=== PATIENT | female | born 1960 | race Caucasian/White ===

== ENCOUNTER 2021-06-05 14:43 | Outpatient (REF) | payer MEDICAID, SELFPAY ==
--- NOTE | ~2021-06-05 | XR_ITS ---
EXAMINATION: XR KNEE, RIGHT CLINICAL INFORMATION: Pain right knee COMPARISON: None TECHNIQUE: Four views of the right knee. FINDINGS: There is mild loss of medial and patellofemoral compartment joint space with minimal periarticular spurring. No loose bodies of bony erosive changes seen. There is no abnormal joint effusion. XR/XR knee RT 4V IMPRESSION: Mild degenerative changes medial and patellofemoral compartment. No abnormal joint effusion seen.
== END 2021-06-05 14:44 | disposition home or self-care (01) ==
LOC: HO.XRAY 14:43
PROVIDERS: PCP Nurse Practitioner Family; Visit Provider Nurse Practitioner Family
DX: M25.561 Pain in right knee (principal)
CPT/HCPCS: 73564

== ENCOUNTER 2021-10-01 10:51 | Outpatient (REF) | payer MEDICAID, SELFPAY | END 2021-10-01 10:52 | disposition home or self-care (01) | LOC: HO.LAB 10:51 | PROVIDERS: Visit Provider Internal Medicine | DX: Z20.822 Contact with and (suspected) exposure to COVID-19 (principal) | CPT/HCPCS: C9803; U0003; U0005 ==

== ENCOUNTER 2021-10-14 11:28 | Outpatient (REF) | payer MEDICAID, SELFPAY | END 2021-10-14 11:29 | disposition home or self-care (01) | LOC: HO.LAB 11:28 | PROVIDERS: Visit Provider Internal Medicine | DX: Z13.89 Encounter for screening for other disorder (principal) | CPT/HCPCS: 36415; 87635; C9803 ==

== ENCOUNTER 2021-10-22 09:53 | Outpatient (REF) | payer MEDICAID, SELFPAY ==
[2021-10-22 10:49] LABS: Binax Internal Control QC Valid; Binax Now Covid-19 Ag Negative (Negative)
== END 2021-10-22 09:54 | disposition home or self-care (01) ==
LOC: HO.LAB 09:53
PROVIDERS: Visit Provider Internal Medicine
DX: Z20.822 Contact with and (suspected) exposure to COVID-19 (principal)
CPT/HCPCS: C9803

== ENCOUNTER 2021-10-25 09:40 | Outpatient (REF) | payer MEDICAID, SELFPAY ==
[2021-10-25 10:43] LABS: Binax Internal Control QC Valid; Binax Lot number: 9864; Binax Now Covid-19 Ag Negative (Negative)
== END 2021-10-25 09:41 | disposition home or self-care (01) ==
LOC: HO.LAB 09:40
PROVIDERS: Visit Provider Internal Medicine
DX: Z20.822 Contact with and (suspected) exposure to COVID-19 (principal)
CPT/HCPCS: C9803

== ENCOUNTER 2021-10-30 14:15 | Outpatient (REF) | payer MEDICAID, SELFPAY ==
[2021-10-30 14:40] LABS: COVID-19 Test Negative (Negative); IDNOW Serial# 16C4AD1C
== END 2021-10-30 14:16 | disposition home or self-care (01) ==
LOC: HO.LAB 14:15
PROVIDERS: Visit Provider Internal Medicine
DX: Z20.822 Contact with and (suspected) exposure to COVID-19 (principal)
CPT/HCPCS: 87635; C9803

== ENCOUNTER 2021-11-06 11:45 | Outpatient (REF) | payer MEDICAID, SELFPAY ==
[2021-11-06 12:41] LABS: Binax Internal Control QC Valid; Binax Now Covid-19 Ag Negative (Negative)
== END 2021-11-06 11:46 | disposition home or self-care (01) ==
LOC: HO.LAB 11:45
PROVIDERS: Visit Provider Internal Medicine
DX: Z20.822 Contact with and (suspected) exposure to COVID-19 (principal)
CPT/HCPCS: C9803

== ENCOUNTER 2023-09-15 13:38 | Outpatient (REF) | payer MEDICAID, SELFPAY ==
[2023-09-15 16:37] LABS: TSH reflex Free T4 7.51 uIU/mL (0.32-4.0)
[2023-09-15 17:32] LABS: Free T4 (Free Thyroxine) 0.76 ng/dL (0.71-1.85)
== END 2023-09-15 13:39 | disposition home or self-care (01) ==
LOC: HO.HHCL 13:38
PROVIDERS: Visit Provider Internal Medicine Geriatric Medicine
DX: R42 Dizziness and giddiness (principal); R00.1 Bradycardia, unspecified
CPT/HCPCS: 36415; 84439; 84443

== ENCOUNTER → 2023-11-10 13:45 | Outpatient (BNV) | payer MEDICAID, SELFPAY | PROVIDERS: Visit Provider Radiology Diagnostic Radiology | DX: Z12.31 Encounter for screening mammogram for malignant neoplasm of breast (principal) | CPT/HCPCS: 77063; 77067 ==

== ENCOUNTER 2023-11-10 13:51 | Outpatient (REF) | payer MEDICAID, SELFPAY ==
--- NOTE | ~2023-11-10 | MM_ITS ---
EXAMINATION: MM SCREENING DIGITAL BREAST TOMOSYNTHESIS, BILATERAL CLINICAL INFORMATION: Screening. Asymptomatic. COMPARISON: Mammography: This study is compared with prior exams dating back to 2013. TECHNIQUE: Digital breast tomosynthesis is performed in both the craniocaudal and mediolateral oblique views along with computer-aided detection (CAD). Synthesized 2D images are generated from the tomosynthesis. FINDINGS: There are scattered areas of fibroglandular density (ACR BI-RADS breast composition Category b). There are no significant masses, abnormal calcifications, or other abnormalities. MM/MM tomosynthesis screening BI IMPRESSION: No mammographic evidence of malignancy. ASSESSMENT: BI-RADS BI-RADS 1 - Negative RECOMMENDATION: Routine annual mammography screening. 1 year F/U This examination should not preclude the clinical evaluation of a suspicious palpable abnormality. This patient's information was entered into a reminder system with a target due date for their next mammogram.
== END 2023-11-10 13:52 | disposition home or self-care (01) ==
LOC: HO.MAMMO 13:51
PROVIDERS: Visit Provider Registered Nurse
DX: Z12.31 Encounter for screening mammogram for malignant neoplasm of breast (principal)
CPT/HCPCS: 77063; 77067

== ENCOUNTER 2023-12-15 10:15 | Outpatient (REF) | payer MEDICAID, SELFPAY ==
[2023-12-15 11:49] LABS: MANUAL DIFF FLAG NO
[2023-12-15 12:11] LABS: Basophils Percent Auto 0.6 % (0-2); Eosinophils Absolute Auto 0.1 X10*3/uL (0.0-0.4); Eosinophils Percent Auto 0.8 % (0-4); Hematocrit 38.6 % (37.0-47.0); Hemoglobin 12.8 g/dl (12.0-16.0); Imm Gran Abs Auto 0.02 X10*3/uL (0.00-0.03); Imm Gran Pct Auto 0.3 % (0.0-0.4); Lymphocytes Absolute Auto 2.3 X10*3/uL (1.2-4.9); Mean Corpuscular HGB Conc 33.2 g/dl (31.0-35.0); Mean Corpuscular Hemoglobin 31.4 pg (27.0-33.0); Mean Corpuscular Volume 94.6 fL (80.0-98.0); Mean Platelet Volume 9.5 fL (9.4-12.3); Monocytes Absolute Auto 0.5 X10*3/uL (0.1-1.2); Monocytes Percent Auto 6.9 % (2-11); Neutrophils Absolute Auto 3.8 x10*3/uL (2.0-8.3); Neutrophils Percent Auto 56.4 % (45-73); Platelet Count 362 X10*3/uL (160-400); Red Blood Count 4.08 X10*6/uL (4.20-5.50); Red Cell Distribution Width 13.2 % (11.0-16.0); White Blood Count 6.7 X10*3/uL (4.8-10.8)
[2023-12-15 13:00] LABS: Alanine Aminotransferase 12 U/L (0-31); Alkaline Phosphatase 65 U/L (39-117); Anion Gap 11 (12-20); Aspartate Amino Transferase 13 U/L (5-31); Bilirubin Total 0.3 mg/dL (0.0-1.0); Blood Urea Nitrogen 11 mg/dL (9-16); Calcium 9.4 mg/dL (8.4-10.2); Carbon Dioxide 28 mmol/L (22-29); Chloride 108 mmol/L (96-108); Cholesterol 206 mg/dL (<200); Estimated Glomerular Filt Rate > 60; Glucose Random 79 mg/dL (60-115); HDL Cholesterol 52 mg/dL (>40); LDL Cholesterol Calculated 135 mg/dL (<100); Potassium 3.8 mmol/L (3.3-5.1); Sodium 143 mmol/L (135-145); Total Protein 7.2 g/dL (6.5-8.0); Triglycerides 96 mg/dL (<150)
[2023-12-15 13:18] LABS: Ferritin 228 ng/mL (10-250); TSH reflex Free T4 8.22 uIU/mL (0.32-4.0)
[2023-12-15 14:32] LABS: Free T4 (Free Thyroxine) 0.65 ng/dL (0.71-1.85)
== END 2023-12-15 10:16 | disposition home or self-care (01) ==
LOC: HO.LAB 10:15
PROVIDERS: PCP Registered Nurse; Visit Provider Internal Medicine Cardiovascular Disease
DX: R53.83 Other fatigue (principal); I10 Essential (primary) hypertension; R42 Dizziness and giddiness; R00.1 Bradycardia, unspecified; E03.9 Hypothyroidism, unspecified; Z79.899 Other long term (current) drug therapy
CPT/HCPCS: 36415; 80053; 80061; 82728; 84439; 84443; 85025; 93005; 99202

== ENCOUNTER 2023-12-15 10:16 | Outpatient (AMB) | payer MEDICAID, SELFPAY ==
[2023-12-15 10:30] VITALS: BP 120/60; PULSE 39; BMI 30.1
--- NOTE | 2023-12-15 10:30 | A.OFFVIS_ITS ---
Intake Vital Signs 12/15/23 10:30 12/15/23 11:10 12/15/23 11:10 Height 5 ft 3 in Weight 169 lb 12.095 oz BMI 30.1 BP 120/60 128/6 L 137/68 Blood Pressure Location Lt brachial Lt brachial Lt brachial Position Sitting Supine Standing Pulse 39 L 42 L 41 L Pulse Source Monitor Intake Visit Reasons: [employer]CH[employer]/ Name/Dizziness, bradycardia Intake Note: PT is still feeling dizziness and headaches Private Wealth Advisor Required: Yes Private Wealth Advisor Name: [facility] Allergies No Known Allergies Allergy (Verified 12/15/23 10:37) Medication List - Last Reconciled 12/15/23 by Ciro Dixon MD lisinopril 10 mg PO QAM polyethylene glycol 3350 (Gavilax) 17 grams PO DAILY HPI HPI Comments History of Present Illness Details Thank you for referring Norma in cardiology consultation today for lightheadedness. She has a 63-year-old female with prior history of hypertension although she has not sure as to how long, history obtained with help of invoicing specialist. Patient says that she went to you in September when she was noted to have elevated blood pressure although she has not clear but she says her lisinopril was increased at that time to 10 mg. She has not sure as to why. Since then she has been getting more frequent episodes of lightheadedness. However she says she was getting lightheaded episodes even before. She says she can get lightheaded episodes when she is sitting down but mostly happens when she is up and about. She denies any orthostatic lightheadedness. She was at that time noted to have slow heart rate was advised a cardiology consultation. She comes today for cardiology consultation. In September she had a TSH which was elevated in the 7.5 range [facility] Medical History (Updated 12/15/23 @ 10:57 by Ciro Dixon MD) HTN (hypertension) Family History (Updated 12/15/23 @ 10:39 by Fernanda Soto) Mother No problems noted. Review of Systems Const Denies weakness Eyes Denies loss of vision ENT Denies dizziness Card Details: Heaches & Dizziness Denies chest pain, Denies chest pain with activity, Denies syncope, Denies rapid heart rate, Denies pedal edema, Denies edema, Denies leg edema, Denies lightheadedness, Denies palpitations, Denies dyspnea, Denies dyspnea on exertion and Denies orthopnea Resp Denies cough, Denies dyspnea, Denies dyspnea on exertion and Denies wheezing GI Denies hematochezia and Denies change in stool character Denies urinary frequency and Denies dysuria Musc Denies abnormal gait, Denies muscle cramps, Denies muscle weakness, Denies numbness, Denies radiating pain into limb and Denies tingling Skin/Breast Denies nail changes and Denies rash Neuro Denies abnormal gait, Denies dizziness, Denies syncope, Denies loss of vision, Denies memory loss, Denies numbness, Denies tingling and Denies weakness Psych Denies depression and Denies memory loss Endo Denies palpitations Maverick/Lymph Reports easy bruising and Reports other (anemia) Aller/Immun Denies wheezing Physical Exam Vital Signs: Last Vital Signs Pulse 41 L 12/15/23 11:10 BP 137/68 12/15/23 11:10 BMI result Body Mass Index 30.1 Office Procedures EKG Details: EKG shows marked sinus bradycardia, with junctional ST depression 25118-Iamzlacpuupghzavn, Complete Assessment & Plan Assessment & Plan (1) Lightheadedness: Code(s): R42 - Dizziness and giddiness Plan: Patient's lightheadedness is concerning. However symptoms have been exacerbated since increasing lisinopril therapy, could be due to poor cerebral perfusion from low blood pressure low heart rate. See below for sinus bradycardia. At this time time I suggested to increase her fluid intake and reduce lisinopril to 5 mg daily. Advised to monitor blood pressure at home and maintain a log. Low- salt diet was discussed. If she gets progressive symptoms or has episodes of syncope she is advised to come to the emergency room. Her suggest an echocardiogram as well as Holter monitor to further assess for any significant sinoatrial marie disease that may necessitate a pacemaker. Will follow up in the clinic after above testing. (2) Sinus bradycardia: Code(s): R00.1 - Bradycardia, unspecified Plan: Significant sinus bradycardia without any rate lowering medications. Avoid rate lowering medication the future. However she has hypothyroidism by blood work and will repeat TSH. Have taken the liberty to provide her with thyroid replacement therapy. Follow-up Holter monitor in 4 weeks time as well as TSH. She is also recommended to undergo treadmill stress test about 4 weeks to assess for chronotropic competence. If despite adequate correction of her thyroid condition she has significant symptomatic sinus bradycardia require pacemaker therapy. This was discussed with her. She understands and agrees. Follow up in the clinic in 6 weeks time, sooner p.r.n.. Thank you for allowing me to partake in the care Orders: Orders TSH reflex Free T4 12/15/23 E03.9 - Hypothyroidism, unspecified CA echo transthoracic complete 12/15/23 R42 - Dizziness and giddiness ECG holter monitor 48 hour 12/15/23 R00.1 - Bradycardia, unspecified Basic Metabolic Panel 12/15/23 E03.9 - Hypothyroidism, unspecified Complete Blood Count no Diff 12/15/23 E03.9 - Hypothyroidism, unspecified CA stress test 4 Weeks R00.1 - Bradycardia, unspecified Medications: New levothyroxine 25 mcg PO DAILY 30 caps 2RF R42 - Dizziness and giddiness lisinopril 5 mg PO QAM R42 - Dizziness and giddiness Coding Level of Care Code New Pt Level 4 (48541) Diagnoses Lightheadedness R42 Sinus bradycardia R00.1 CPT Codes EKG - CPT: 79363-[id number], Complete ([id number])
[2023-12-15 11:10] VITALS: BP 128/6; BP 137/68; PULSE 41; PULSE 42
== END 2023-12-15 11:19 | disposition home or self-care (01) ==
PROVIDERS: PCP Registered Nurse; Visit Provider Internal Medicine Cardiovascular Disease
DX: R42 Dizziness and giddiness (principal); R00.1 Bradycardia, unspecified
CPT/HCPCS: 93010; 99204

== ENCOUNTER → 2024-11-15 14:00 | Outpatient (BNV) | payer MEDICAID, SELFPAY | PROVIDERS: PCP Registered Nurse; Visit Provider Internal Medicine | DX: Z12.31 Encounter for screening mammogram for malignant neoplasm of breast (principal) | CPT/HCPCS: 77063; 77067 ==

== ENCOUNTER 2024-11-29 15:24 | Outpatient (REF) | payer MEDICAID, SELFPAY ==
[2024-11-29 16:13] LABS: MANUAL DIFF FLAG NO
--- OUTSIDE RECORDS SUMMARY | 2024-11-29 16:17 | XMS_ITS | Encounter Summary ---
Author Organization [employer] Address [address] [facility] [address] [place] [address] Care Team Providers Care Printing Screen Assembler Name Role Phone Kristan Mancilla TANDEM OPERATOR Primary Care Provider [phone] Encounter Details Date Type Department Care Team (Latest Contact Info) Description 11/29/2024 2:40 PM EST Office Visit [facility] [address] [place] [address] Acquired hypothyroidism (Primary Dx); Other fatigue; Acute maxillary sinusitis, recurrence not specified; Cough, unspecified type; Insomnia, unspecified type Social History Tobacco Use Types Packs/Day Years Used Date Smoking Tobacco: Former Cigarettes Smokeless Tobacco: Never Depression Answer Date Recorded Patient Health Questionnaire-9 Score 12 11/06/2023 Patient Health Questionnaire-9 Score 12 11/06/2023 Last PHQ-9: Questionnaire Data Not on file 0 11/06/2023 Housing Stability Answer Date Recorded What is your housing situation today? I have marcio rodriguez 11/06/[address] you li ve. Do you have problems with any of the following? None of the above 11/06/2023 Food Insecurity Answer Date Recorded Within the past 12 months, y ou worried that your food would run out before you got money to buy more: Never True 11/06/2023 Within the past 12 months,th e food you bought just didn't last and you didn't have enough money to get more: Never True Transportation Answer Date Recorded In the past 12 months, has l ack of transportation kept you from medical appts, meetings, work or from getting things needed for daily living? No 11/06/2023 Utilities Answer Date Recorded In the past 12 months, has t he electric, gas, oil or water company threatened to shut off services in your home? No 11/06/2023 Depression Answer Date Recorded Patient Health Questionnaire-2 Score 3 11/06/2023 Comments Unknown Sex and Gender Information Value Date Recorded Sex Assigned at Female 08/11/2022 10:15 AM EDT Legal Sex Female 10:15 AM EDT Gender Identity Female 08/11/2022 10:15 AM EDT Sexual Orientation Don't know 08/11/2022 10 :15 AM EDT documented as of this encounter Last Filed Vital Signs Vital Sign Reading Time Taken Comments Blood Pressure 111/75 11/29/2024 2:34 PM EST Pulse 74 11/29/2024 2:34 PM EST Temperature 36.5 ??C (97.7 ??F) 11/29/2024 2:34 PM ES T Respiratory Rate 16 11/29/2024 2:34 PM EST Oxygen Saturation - - Inhaled Oxygen Concentration - - Weight 73.9 kg (163 lb) 11/29/2024 2:34 PM EST Height 157.5 cm (5' 2 ) 11/29/2024 2:34 PM EST Body Mass Index 29.81 11/29/2024 2:34 PM EST documented in this encounter Plan of Treatment Upcoming Encounters Date Type Department Care Team (Late st Contact Info) Description 12/30/2024 11:15 AM EDT Office Visit [facility] [address] [place], [place] [id number] [facility] [address] [place] [address] Scheduled Orders Name Type Priority Associated Diagnoses Orde r Schedule CBC auto differential Lab Routine Acquired hypothyroidism Other fatigue Expected: 11/29/2024 (Approximate), Expires: 11/29/2025 Comprehensive Metabolic Panel Lab Routine Acquired hypothyroidism Other fatigue Expected: 11/29/2024 (Approximate), Expires: 11/29/2025 Hemoglobin A1c Lab Routine Acquired hypothyroidism Other fatigue Expected: 11/29/2024 (Approximate), Expires: 11/29/2025 HIV-1/2 Antigen and Antibodies, Fourth Generation, with Reflexes Lab Routine Acquired hypothyroidism Other fatigue Expected: 11/29/2024 (Approximate), Expires: 11/29/2025 Hepatitis C Antibody with Reflex to HCV, RNA, Quantitative, Real-Time PCR Lab Routine Acquired hypothyroidism Other fatigue Expected: 11/29/2024, Expires: 11/29/2025 Lipid Panel, Standard Lab Routine Acquired hypothyroidism Other fatigue Expected: 11/29/2024 (Approximate), Expires: 11/29/2025 Vitamin D, 25-Hydroxy, Total, Immunoassay Lab Routine Acquired hypothyroidism Other fatigue Expected: 11/29/2024 (Approximate), Expires: 11/29/2025 TSH with Reflex to Free T4 Lab Routine Acquired hypothyroidism Other fatigue Expected: 11/29/2024 (Approximate), Expires: 11/29/2025 documented as of this encounter Visit Diagnoses Diagnosis Acquired hypothyroidism- Primary Unspecified hypothyroidism Other fatigue Acute maxillary sinusitis, recurrence not specified Cough, unspecified type Insomnia, unspecified type documented in this encounter Additional Health Concerns Assessment Noted Time PHQ-9 Depression Total Score: 12 024 3:40 PM EST documented as of this encounter Care Teams Printing Screen Assembler Relationship Specialty Start Date End Date Kristan Mancilla FNP [address] [place] [id number] PCP - General Family Medicine 04/15/22 documented as of this encounter
--- OUTSIDE RECORDS SUMMARY | 2024-11-29 16:17 | XMS_ITS | Encounter Summary ---
Author Organization [employer] [facility] Address [address] [facility] [address] [place] [address] Care Team Providers Care Literacy Specialist Name Role Phone [place] [facility] Primary Care Provider [phone] Encounter Details Date Type Department Care Team (Late Contact Info) Description 04/23/[address] [address] [facility] [address] [place] [address] Social History Tobacco Use Types Packs/Day Years Used Date Smoking Tobacco: Never Assessed Comments Unknown Sex and Gender Information Value Date Recorded Sex Assigned at Female 08/11/2022 10:15 AM EDT Legal Sex Female 10:15 AM EDT Gender Identity Female 08/11/2022 10:15 AM EDT Sexual Orientation Don't know 08/11/2022 10 :15 AM EDT documented as of this encounter Plan of Treatment Upcoming Encounters Date Type Department Care Team (Late st Contact Info) Description 12/30/2024 11:15 AM EDT Office Visit [facility] [address] [place] [address] [place] [facility] [address] [place] [address] documented as of this encounter Visit Diagnoses Not on filedocumented in this encounter Care Teams Literacy Specialist Relationship Specialty Start Date End Date Kristan Mancilla [facility] [address] [place] [id number] PCP - General Family Medicine 04/15/22 documented as of this encounter
--- OUTSIDE RECORDS SUMMARY | 2024-11-29 16:17 | XMS_ITS | Encounter Summary ---
Author Organization [employer] Address [address] [facility] [address] [place] [address] Care Team Providers Care Labor Gang Supervisor Name Role Phone [place] [facility] Primary Care Provider [phone] Reason for Visit * Reason Onset Date Comments Walk In Triage 11/29/2024 Encounter Details Date Type Department Care Team (Late st Contact Info) Description 11/29/2024 Telephone [facility] [address] [place] [address] [facility] [address] [place] [address] Walk In Triage Social History Tobacco Use Types Packs/Day Years [...] t he electric, gas, oil or water [employer] threatened to shut off services in your [...] AM EDT documented as of this encounter Miscellaneous Notes * Telephone Encounter - Mable Dutta RN - 11/29/2024 11:18 AM EST Assessment: Patient presents to red team with c/o concerns regarding BP (at times elevated and at times low). Patient did not have BP readings with her, reports she did not check BP today. Patient also has c/o dizziness, sweating, dry cough, fatigue and tachycardia. Patient reports she woke up during the nightsweating and with a headache. Patient also reports she has been having memory difficulties (short te rm memory). Patient currently is taking lisinopril 10mg daily, reports compliance. Patient reports feeling anxious (has not seen a therapist in the past) and also reports episodes of depression. Patient reports at times she begins to cry without having a reason. Patient reports feeing safe at home. Symptoms have been present for 1 week. Symptoms are intermittent. Symptoms worsen when laying down d/t cough worsening. Symptoms are relieved by relaxation techniques (listening to music, deep breaths). Patient is taking lisinopril 10mg, levothyroxine 25mcg and albuterol inhaler q4 hours daily. Recent ED visit or hospitalization: No. VS as follows (if applicable): Temp 97.5F by forehead thermometer HR 60 regular rate and rhythm Resp 20 none BP 123/78 left Arm; Device: Automatic Cuff Size: regular O2 sat 97 % on room air Pain level: 7, Location: Headache Lung sounds (if applicable) Congested, Location: middle left No Known Allergies Current Outpatient Medications Medication Sig Dispense Refill albuterol 108 (90 Base) MCG/ACT inhaler Inhale 2 puffs every 4 (four) hours if needed for wheezing or shortness of breath. 18 g 1 azithromycin (Zithromax Z-Silverio) 250 MG tablet Take 2 tablets once on day 1, then 1 tablet 1x/day for4 days. 6 tablet 0 Blood Pressure kit Use as directed 1 kit 0 Diclofenac Sodium 1 % gel APPLY TO THE AFFECTED AREA(S) 2 GRAMS TOPICALLY FOUR TIMES DAILY FOR HANDARTHRITIS levothyroxine (Synthroid, Levoxyl) 25 MCG tablet Take 1 tablet (25 mcg) by mouth Once per day. 30 tablet 5 lisinopril (Prinivil) 10 MG tablet Take 1 tablet (10 mg) by mouth Once per day. 30 tablet 5 meloxicam (Mobic) 7.5 MG tablet TAKE 1 TABLET BY MOUTH ONCE DAILY NEEDED FOR JOINT PAIN polyethylene glycol, PEG, 3350 (GaviLAX) 17 GM/SCOOP powder TAKE 17 GM MIXED IN 8 OUNCES OF WATER ONCE DAILY 510 g 2 Spacer/Aero-Holding Chambers (OptiChamber Beth) misc 1 each every 4 (four) hours if needed (asthma). 1 each 0 No current facility-administered medications for this visit. Patient Active Problem List Diagnosis Date Noted Essential hypertension 10/07/2022 Mixed hyperlipidemia 10/07/2022 Vitamin D deficiency 10/07/2022 Obesity 08/11/2016 Plan of care: RN spoke to Dr. Crouch in regards to patient and her s/s. Dr. Crouch agreed to evaluate patient after TV appointment. While patient awaited for provider, patient was on a phone call, no SOB noted during call. Dr. Crouch has cleared patient to await for 2:40pm appointment in [facility]. Patient to be seen in [facility] 11/29/24 at 2:40pm. Advised to return at 2:10pm for Provider evaluation Mable Dutta RN documented in this encounter Plan of Treatment Upcoming Encounters Date Type Department Care Team (Late st Contact Info) Description 12/30/2024 11:15 AM EDT Office Visit [facility] [address] [place] [address] [facility] [address] [place] [address] documented as of this encounter Visit Diagnoses Not on filedocumented in this encounter Additional Health Concerns Assessment Noted Time PHQ-9 Depression Total Score: 12 024 3:40 PM EST documented as of this encounter Care Teams Labor Gang Supervisor Relationship Specialty Start Date End Date Kristan Mancilla FNP [address] [place] [address] PCP - General Family Medicine 04/15/22 documented as of this encounter
--- OUTSIDE RECORDS SUMMARY | 2024-11-29 16:17 | XMS_ITS | Encounter Summary ---
Author Organization [facility] Address [address] [facility] 7t [place] [address] Care Team Providers Care Egg Crater Name Role Phone Kristan Mancilla CAN SOLDERER Primary Care Provider [phone] Reason for Referral * Consultation (Routine) - Authorized Specialty Diagnoses / Procedures Referred By Bethany turner Referred To Contact Cardiology Diagnoses Bradycardia Modesto Galeana MD [address] [place], [place] Phone: tel: fax: Liban Busby MD [address] [place], [place] Phone: tel: fax: Referral ID Status Reason Start Date Expiration Date Visits Requested Visits Authorized [id number] Authorized Specialty Services Required 11/16/2024 11/16/2025 1 1 * Consultation (Routine) - Closed Specialty Diagnoses / Procedures Referred By Bethany turner Referred To Contact Obstetrics and Gynecology Diagnoses Screening for cervical cancer Modesto Galeana MD [address] [place] [address] Phone: tel: fax: [facility] [address] 5[address] (Main Hospital Entrance) [place], [place] Phone: tel: fax: Referral ID Status Reason Start Date Expiration Date V isits Requested Visits Authorized [id number] Closed Specialty Services Required 11/16/2024 11/16/2025 9 9 Reason for Visit * Reason Comments Cough Encounter Details Date Type Department Care Team ([facility] Contact Info) Description 11/16/2024 4:00 PM EST Office Visit [facility] [address] [facility] [place] [address] Modesto Galeana MD [address] [facility] [place] [address] Acute cough (Primary Dx); Essential hypertension; Bradycardia; Screening for cervical cancer; Hypothyroidism, unspecified type; Constipation, unspecified constipation type Social History Tobacco Use Types Packs/Day Years Used Date Smoking Tobacco: Former Cigarettes Smokeless Tobacco: Never Tobacco Cessation:Counseling Given: Not Answered Depression Answer Date Recorded Patient Health Questionnaire-9 Score 12 11/06/2023 Patient Health Questionnaire-9 Score 12 11/06/2023 Last PHQ-9: Questionnaire Data Not on file 0 11/06/2023 Housing Stability Answer Date Recorded What is your housing situation today? I have marciogerald rodriguez 11/06/[address] you [...] Sign Reading Time Taken Comments Blood Pressure 149/85 11/16/2024 4:05 PM EST Pulse 52 11/16/2024 4:05 PM EST Temperature 37.1 ??C (98.8 ??F) 11/16/2024 4:05 PM ES T Respiratory Rate 18 11/16/2024 4:05 PM EST Oxygen Saturation 97% 11/16/2024 4:05 PM EST Inhaled Oxygen Concentration - - Weight 72.8 kg (160 lb 9.6 oz) 11/16/2024 4:05 P M EST Height - - Body Mass Index 29.37 11/06/2023 3:39 PM EST documented in this encounter Progress Notes * Modesto Galeana MD - 11/16/2024 4:00 PM EST Subjective Patient ID: Norma Simmons is a 64 y.o. female. Test Deskman: daughter INGA Green has 2 week h/o, dry/productive cough, occasional wheezing and SOB. No fever, n/v/d. Taking p.o. well. Tried DayQuil, NyQuil, Mucinex. No showed for last 2 PCP visits. Ran out of Synthroid 07/2025, prescribed by Dr. Dixon, who she states won't see her anymore becauseof missed appointments. Was seeing him for bradycardia. Also states that she needs f/u jose't with [facility]; last jose't was > 1 year ago. Also requesting refill of amlodipine and MiraLax. Still taking amlodipine 10 mg. Lives with , daughter, grandchildren. 1 grandchild tested + for RSV. Not employed. Former smoker, quit 12 years ago. Smokes weed. Patient Active Problem List Diagnosis Essential hypertension Mixed hyperlipidemia Obesity Vitamin D deficiency The following portions of the chart were reviewed this encounter and updated as appropriate: Tobacco Allergies Meds Problems Med Hx Surg Hx Fam Hx Review of Systems Constitutional: Negative for fever. Respiratory: Positive for cough, shortness of breath and wheezing. Cardiovascular: Negative for chest pain. Gastrointestinal: Negative for abdominal pain. Skin: Negative for rash. Neurological: Negative for headaches. Objective Physical Exam Constitutional: Appearance: Normal appearance. HENT: Right Ear: Tympanic membrane, ear canal and external ear normal. Left Ear: Tympanic membrane, ear canal and external ear normal. Nose: Nose normal. Mouth/Throat: Mouth: Mucous membranes are moist. Pharynx: Oropharynx is clear. Eyes: Conjunctiva/sclera: Conjunctivae normal. Pupils: Pupils are equal, round, and reactive to light. Cardiovascular: Rate and Rhythm: Normal rate and regular rhythm. Heart sounds: No murmur heard. Pulmonary: Effort: Pulmonary effort is normal. Breath sounds: Rales (left midlung field) present. Musculoskeletal: General: Normal range of motion. Cervical back: No tenderness. Skin: Findings: No rash. Neurological: Mental Status: She is alert. Gait: Gait is intact. Psychiatric: Mood and Affect: Mood normal. Behavior: Behavior normal. Procedures Assessment/Plan Diagnoses and all orders for this visit: Acute cough Negative rapid Covid and Influenza tests. Rapid Strep test negative. Presumptive pneumonia based on exam, 2 weeks of sx. Prescribed alubterol HFA with spacer, prednisone, Zithromax. rtc if not improving. Essential hypertension Has home BP monitor. Reviewed BP parameters, given written BP log that includes BP parameters, to keep daily. We scheduled PCP jose't; advised to bring BP log to visit. - POCT Rapid Covid-19 BinaxNOW - POCT Rapid Influenza A AC ID NOW - POCT Rapid Influenza B AC ID NOW - POCT Rapid Strep A AC ID NOW - lisinopril (Prinivil) 10 MG tablet; Take 1 tablet (10 mg) by mouth Once per day. Hypothyroidism, unspecified type Refilled levothyroxine today. PCP jose't scheduled. Bradycardia New cardiology referral sent. Screening for cervical cancer Sent new referral to [facility]. Constipation, unspecified constipation type Refilled MiraLax - polyethylene glycol, PEG, 3350 (GaviLAX) 17 GM/SCOOP powder; TAKE 17 GM MIXED IN 8 OUNCES OF WATER ONCE DAILY Other orders - levothyroxine (Synthroid, Levoxyl) 25 MCG tablet; Take 1 tablet (25 mcg) by mouth Once per day. - albuterol 108 (90 Base) MCG/ACT inhaler; Inhale 2 puffs every 4 (four) hours if needed for wheezing or shortness of breath. - azithromycin (Zithromax Z-Silverio) 250 MG tablet; Take 2 tablets once on day 1, then 1 tablet 1x/day for 4 days. - Spacer/Aero-Holding Chambers (OptiChamber Beth) [facility]; 1 each every 4 (four) hours if needed (asthma). - predniSONE (Deltasone) 20 MG tablet; Take 2 tablets (40 mg) by mouth Once per day for 5 days. documented in this encounter Plan of Treatment Upcoming Encounters Date Type Department Care Team (Late st Contact Info) Description 12/30/2024 11:15 AM EDT Office Visit [facility] [address] [place], [place] [phone] [facility] [address] [place] [address] Scheduled Referrals Name Type Priority Associated Diagnoses Order Schedule Referral to Obstetrics / Gynecology Outpatient Referral Routine Screening for cervical cancer Expected: 11/16/2024 (Approximate), Expires: 11/16/2025 Referral to Cardiology Outpatient Referral Routine Bradycardia Expected: 11/16/2024 (Approximate), Expires: 11/16/2025 documented as of this encounter Procedures Procedure Name Priority Date/Time Associated Diagnosis Comments POCT INFLUENZA B (ID NOW RAPID MOLECULAR) Routine 11/16/2024 4:30 PM EST Essential hypertension POC AC ID NOW STREP A Routine 11/16/2024 4:30 PM EST Essential hypertension POCT INFLUENZA A (ID NOW RAPID MOLECULAR) Routine 11/16/2024 4:29 PM EST Essential hypertension POCT RAPID COVID ANTIGEN Routine 11/16/2024 4:29 PM EST Essential hypertension documented in this encounter Results * POCT Rapid Strep A AC ID NOW (11/16/2024 4:30 PM EST) [facility] Rapid Strep A Screen Negative Negative, None Detected QC Media Lot # [id number] Lot# Expiration Date [id number] Swab 11/16/2024 4:30 PM EST Modesto Galeana MD POINT OF CARE TEST ENTER/EDIT OR DERABLES Final Result * POCT Rapid Influenza B AC ID NOW (11/16/2024 4:30 PM EST) Influenza B Negative Negative, Indeterminate [facility] QC Media Lot # [id number] [facility] Lot# Expiration Date [facility] Swab 11/16/2024 4:30 PM EST us Modesto Galeana MD POINT OF CARE TEST ENTER/EDIT OR DERABLES Final Result Performing Organization Address [facility]/ZIP Co de Phone Number [facility] [address] [place] [phone] * POCT Rapid Influenza A AC ID NOW (11/16/2024 4:29 PM EST) Influenza A Negative Negative, Indeterminate [facility] QC Media Lot # [id number] [facility] Lot# Expiration Date [facility] Swab 11/16/2024 4:29 PM EST us Modesto Galeana MD POINT OF CARE TEST ENTER/EDIT OR DERABLES Final Result Performing Organization Address [facility] Co de Phone Number [facility] [address] [place] [phone] * POCT Rapid Covid-19 BinaxNOW (11/16/2024 4:29 PM EST) Rapid COVID Ag Negative QC Media Lot # [id number] Lot# Expiration Date 026 Swab 11/16/2024 4:29 PM EST Result Mica Galeana MD POINT OF CARE TEST ENTER/EDIT OR DERABLES Final Result documented in this encounter Visit Diagnoses Diagnosis Acute cough- Primary Essential hypertension Unspecified essential hypertension Bradycardia Other specified cardiac dysrhythmias Screening for cervical cancer Screening for malignant neoplasm of the cervix Hypothyroidism, unspecified type Constipation, unspecified constipation type documented in this encounter Additional Health Concerns Assessment Noted Time PHQ-9 Depression Total Score: 12 024 3:40 PM EST documented as of this encounter Care Teams Egg Crater Relationship Specialty Start Date End Date Kristan Mancilla FNP [address] [place] [phone] PCP - General Family Medicine 04/15/22 documented as of this encounter
--- OUTSIDE RECORDS SUMMARY | 2024-11-29 16:17 | XMS_ITS | Encounter Summary ---
Author Organization [employer] Address [address] [facility] [address]t [place] [address] Care Team Providers Care Coin Box Collector Name Role Phone Colver [facility] Primary Care Provider [phone] Reason for Visit * Reason Onset Date Comments Appointment Request 11/23/2024 Encounter Details Date Type Department Care Team (Late st Contact Info) Description 11/23/2024 Telephone [facility] [address] [place] [address] Colver [facility] [address] [place] [address] Appointment Request Social History Tobacco Use Types Packs/Day Years [...] Telephone Encounter - Mable Dutta RN - 11/23/2024 2:45 PM EST TC placed to patient [phone] in regards to below message we're sorry your call did not go thru . RN unable to leave VM. TC placed to [phone] however number is OOS. TC placed to spouse [phone] however no answer, RN left VM requesting CB to red team nurses. Patient to f/u PRN. * Telephone Encounter - Casimiro Puente - 11/23/2024 11:44 AM EST Tc from pt requesting a callback as she will like to make appointment for a pap- smear as she had came out with pre-cancer and will like to take care off before something worsen out. documented in this encounter Plan of Treatment Upcoming Encounters Date Type Department Care Team (Late st Contact Info) Description 12/30/2024 11:15 AM EDT Office Visit [facility] [address] [place] [address] Kristan Mancilla FNP [address] [place] [address] documented as of this encounter Visit Diagnoses Not on filedocumented in this encounter Additional Health Concerns Assessment Noted Time PHQ-9 Depression Total Score: 12 024 3:40 PM EST documented as of this encounter Care Teams Coin Box Collector Relationship Specialty Start Date End Date Kristan Mancilla FNP [address] [place] [address] PCP - General Family Medicine 04/15/22 documented as of this encounter
--- OUTSIDE RECORDS SUMMARY | 2024-11-29 16:17 | XMS_ITS | Encounter Summary ---
Author Organization [employer] Address [address] [facility] [address]t [place] [address] Care Team Providers Care Sales Clerk Supervisor Name Role Phone Kristan Mancilla Primary Care Provider [phone] Encounter Details Date Type Department Care Team (Late st Contact Info) Description 09/18/2023 Orders Only [facility] [address] [place] [address] [phone] Kristan Mancilla FNP [address] [place], [place] [phone] Social History Tobacco Use Types Packs/Day Years Used Date Smoking Tobacco: Never Smokeless Tobacco: Never Comments Unknown Sex and Gender Information Value Date Recorded Sex Assigned at Female 08/11/2022 10:15 AM EDT Legal Sex Female 10:15 AM EDT Gender Identity Female 08/11/2022 10:15 AM EDT Sexual Orientation Don't know 08/11/2022 10 :15 AM EDT documented as of this encounter Progress Notes * BIENVENIDO Morrow - 09/18/2023 4:17 PM EST error documented in this encounter Plan of Treatment Upcoming Encounters Date Type Department Care Team (Late Contact Info) Description 12/30/2024 11:15 AM EDT Office Visit [facility] [address] [place] [phone] Kristan Mancilla FNP [address] [place] [address] documented as of this encounter Visit Diagnoses Not on filedocumented in this encounter Care Teams Sales Clerk Supervisor Relationship Specialty Start Date End Date Kristan Mancilla, BIENVENIDO [address] [place] [address] PCP - General Family Medicine 04/15/22 documented as of this encounter
--- OUTSIDE RECORDS SUMMARY | 2024-11-29 16:17 | XMS_ITS | Clinical Summary ---
Author Organization [employer] Address [address] [facility] 7t [place] [address] Care Team Providers Care Intravenous Therapy Nurse Name Role Phone Kristan Mancilla HAND MICA PLATE LAYER Primary Care Provider [phone] Allergies No known active allergies Medications Diclofenac Sodium 1 % gel APPLY TO THE AFFECTED AREA(S) 2 GRAMS TOPICALLY FOUR TIMES DAILY FOR HAND ARTHRITIS 03/20/20 22 Active meloxicam (Mobic) 7.5 MG tablet TAKE 1 TABLET BY MOUTH ONCE DAILY NEEDED FOR JOINT PAIN 01/16/20 22 Active Blood Pressure kitIndications: Essential hypertension Use as directed 1 kit 11/06/19 24 Active levothyroxine (Synthroid, Levoxyl) 25 MCG tablet Take 1 tablet (25 mcg) by mouth Once per day. 30 tablet 5 11/16/19 25 026 Active azithromycin (Zithromax Z-Silverio) 250 MG tablet Take 2 tablets once on day 1, then 1 tablet 1x/day for 4 days. 6 tablet 11/16/19 25 Active Spacer/Aero-Hol ding Chambers (OptiChamber Beth) misc 1 each every 4 (four) hours if needed (asthma). 1 each 11/16/19 25 Active lisinopril (Prinivil) 10 MG tabletIndicatio ns:Essential hypertension Take 1 tablet (10 mg) by mouth Once per day. 30 tablet 5 11/16/19 25 026 Active polyethylene glycol, PEG, 3350 (GaviLAX) 17 GM/SCOOP powderIndicatio ns:Constipation , unspecified constipation type TAKE 17 GM MIXED IN 8 OUNCES OF WATER ONCE DAILY 510 g 2 11/16/19 25 Active amoxicillin-cla vulanate (Augmentin) 875-125 MG tabletIndicatio ns:Acute maxillary sinusitis, recurrence not specified Take 1 tablet by mouth 2 times daily for 7 days. 14 tablet 11/29/19 25 025 Active fluticasone (Flonase) 50 MCG/ACT nasal sprayIndication s:Acute maxillary sinusitis, recurrence not specified Administer 1-2 sprays into each nostril 2 times daily. Shake gently. Before first use, prime pump. After use, clean tip and replace cap. 16 g 2 11/29/19 25 026 Active albuterol 108 (90 Base) MCG/ACT inhalerIndicati ons:Cough, unspecified type Inhale 2 puffs every 4 (four) hours if needed for wheezing or shortness of breath. 18 g 1 11/29/19 25 026 Active acetaminophen (Tylenol Extra Strength) 500 MG tabletIndicatio ns:Acute maxillary sinusitis, recurrence not specified Take 2 tablets (1,000 mg) by mouth every 8 (eight) hours if needed for mild pain for up to 10 days. 30 tablet 11/29/19 25 025 Active melatonin 5 MG tabletIndicatio ns:Insomnia, unspecified type Take 1 tablet (5 mg) by mouth at bedtime. 30 tablet 2 11/29/19 25 Active lisinopril (Prinivil) 10 MG tabletIndicatio ns:Essential hypertension Take 1 tablet (10 mg) by mouth in the morning. 30 tablet 11 11/06/19 24 025 Discontinued(R eorder (will not trigger notification to Pharmacy)) polyethylene glycol, PEG, 3350 (GaviLAX) 17 GM/SCOOP powderIndicatio ns:Constipation , unspecified constipation type TAKE 17 GM MIXED IN 8 OUNCES OF WATER ONCE DAILY 510 g 2 10/26/19 25 025 Discontinued(R eorder (will not trigger notification to Pharmacy)) albuterol 108 (90 Base) MCG/ACT inhaler Inhale 2 puffs every 4 (four) hours if needed for wheezing or shortness of breath. 18 g 1 11/16/19 25 025 Discontinued(R eorder (will not trigger notification to Pharmacy)) predniSONE (Deltasone) 20 MG tablet Take 2 tablets (40 mg) by mouth Once per day for 5 days. 10 tablet 11/16/19 25 025 Active Problems Problem Noted Date Diagnosed Date Acquired hypothyroidism 11/29/2024 Other fatigue 11/29/2024 Acute maxillary sinusitis 11/29/2024 Cough 11/29/2024 Insomnia 11/29/2024 Essential hypertension 10/07/2022 Mixed hyperlipidemia 10/07/2022 Vitamin D deficiency 10/07/2022 Obesity 08/11/2016 Encounters Date Type Department Care Team Description 11/29/2024 2:40 PM EST Office Visit [facility] [address] [place] [address] Acquired hypothyroidism (Primary Dx); Other fatigue; Acute maxillary sinusitis, recurrence not specified; Cough, unspecified type; Insomnia, unspecified type 11/29/[address] [address] Kristan Mancilla FNP telephone call 11/29/[address] [address] Kristan Mancilla FNP Walk In Triage 11/23/[address] [address] Kristan Mancilla FNP Appointment Request 11/16/2024 4:00 PM EST Office Visit [facility] WALK-IN [address] [address] Modesto Galeana MD Acute cough (Primary Dx); Essential hypertension; Bradycardia; Screening for cervical cancer; Hypothyroidism, unspecified type; Constipation, unspecified constipation type 11/15/2024 Orders Only [address] [address] Kristan Mancilla FNP 10/26/2024 Refill [facility] [address] [place], [place] [phone] Kristan Manclila FNP Constipation, unspecified constipation type 09/26/[address] [address] Kristan Mancilla FNP No Show 09/16/2024 Patient Outreach [address] [address] Kristan Mancilla FNP Pre-visit Planning (SDOH screening completed on 11/06/2023) from Last 3 Months Social History Tobacco Use Types Packs/Day Years Used Date Smoking Tobacco: Former Cigarettes Smokeless Tobacco: Never Tobacco Cessation:Counseling Given: Not Answered Depression Answer Date Recorded Patient Health Questionnaire-9 Score 12 11/06/2023 Patient Health Questionnaire-9 Score 12 11/06/2023 Last PHQ-9: Questionnaire Data Not on file 0 11/06/2023 Housing Stability Answer Date Recorded What is your housing situation today? I have marcio jennifer 11/06/[address] you li [...] Don't know 08/11/2022 10 :15 AM EDT Last Filed Vital Signs Vital Sign Reading Time Taken Comments Blood Pressure 111/75 11/29/2024 2:34 PM EST Pulse 74 11/29/2024 2:34 PM EST Temperature 36.5 ??C (97.7 ??F) 11/29/2024 2:34 PM ES T Respiratory Rate 16 11/29/2024 2:34 PM EST Oxygen Saturation 97% 11/16/2024 4:05 PM EST Inhaled Oxygen Concentration - - Weight 73.9 kg (163 lb) 11/29/2024 2:34 PM EST Height 157.5 cm (5' 2 ) 11/29/2024 2:34 PM EST Body Mass Index 29.81 11/29/2024 2:34 PM EST Plan of Treatment Upcoming Encounters Date Type Department Care Team (Late st Contact Info) Description 12/30/2024 11:15 AM EDT Office Visit [facility] MEDICINE [address] [place], [place] [phone] [place], [place], [facility] [address] [place], [place] [phone] Health Maintenance Due Date Last Done Comments CT Colonography 1960 Colonoscopy 1960 Colorectal Cancer Screening 1960 FIT DNA/Cologuard 1960 FIT 1960 FOBT 1960 HIV Screening 1960 Sigmoidoscopy 1960 Alcohol/Substance Use Screening 1972 Hepatitis C Screening 1978 Pap Smear 1981 Pneumococcal Vaccine: 50+ Years (1 of 1 - PCV) 2010 Zoster Vaccines (1 of 2) 2010 DTaP/Tdap/Td Vaccines (2 - Td or Tdap) 05/17/2023 05/17/2013 Depression Monitoring (PHQ-9) 05/06/2024 11/06/2023, 11/06/2023 Cervical Cancer Screening 05/10/2024 HPV/Cotest 05/10/2024 05/10/2019 COVID-19 Vaccine ( - season) 2024 Influenza Vaccine (#1) 2024 9, 07/18/2014, 12/05/2013 Depression Screening 11/06/2024 11/06/2023, 11/06/19 24 SDOH Screening 11/06/2024 11/06/2023 Mammogram 11/15/2025 11/15/2024, 10/14, 05/13/2019, Additional history exists Tobacco Screening 11/16/2025 11/16/2024 Lipid Panel 12/14/2028 12/15/2023 RSV Patients and Patients Aged 60 years or older (1 - 1-dose 75+ series) 2035 HIB Vaccines Aged Out No longer eligi ble based on patient's age to complete this topic HPV Vaccines Aged Out No longer eligi ble based on patient's age to complete this topic Hepatitis A Vaccines Aged Out No long er eligible based on patient's age to complete this topic Hepatitis B Vaccines Aged Out No long er eligible based on patient's age to complete this topic IPV Vaccines Aged Out No longer eligi ble based on patient's age to complete this topic Meningococcal Vaccine Aged Out No maria esther chuckie eligible based on patient's age to complete this topic RSV under 20 months Aged Out No longe r eligible based on patient's age to complete this topic Rotavirus Vaccines Aged Out No longer eligible based on patient's age to complete this topic Procedures Procedure Name Priority Date/Time Associated Diagnosis Comments POC AC ID NOW STREP A Routine 11/16/2024 4:30 PM EST Essential hypertension POCT INFLUENZA B (ID NOW RAPID MOLECULAR) Routine 11/16/2024 4:30 PM EST Essential hypertension POCT INFLUENZA A (ID NOW RAPID MOLECULAR) Routine 11/16/2024 4:29 PM EST Essential hypertension POCT RAPID COVID ANTIGEN Routine 11/16/2024 4:29 PM EST Essential hypertension BI MAMMOGRAM SCREENING TOMOSYNTHESIS BILATERAL Routine 11/15/2024 2:02 PM EST LIPID PANEL, STANDARD Routine 12/15/2023 11:45 AM EST Essential hypertension ZZZ HISTORICAL HPV MRNA E6/E7 Routine 05/10/2019 10:54 AM EDT from Last 3 Months or Most Recently Relevant to Health Maintenance Results * POCT Rapid Influenza B AC ID NOW (11/16/2024 4:30 PM EST) Influenza B Negative Negative, Indeterminate [facility] QC Media Lot # [id number] [facility] Lot# Expiration Date [id number] [facility] Swab 11/16/2024 4:30 PM EST us Modesto Galeana MD POINT OF CARE TEST ENTER/EDIT OR DERABLES Final Result Performing Organization Address [facility] Co de Phone Number [facility] [address] [place] [phone] * POCT Rapid Strep A AC ID NOW (11/16/2024 4:30 PM EST) Pathologist [facility] Rapid Strep A Screen Negative Negative, None Detected QC Media Lot # [id number] Lot# Expiration Date ,026 Swab 11/16/2024 4:30 PM EST us Modesto Galeana MD POINT OF CARE TEST ENTER/EDIT OR DERABLES Final Result * POCT Rapid Influenza A AC ID NOW (11/16/2024 4:29 PM EST) Pathologist [facility] Influenza A Negative Negative, Indeterminate [facility] QC Media Lot # [id number] [facility] Lot# Expiration Date [id number] [facility] Swab 11/16/2024 4:29 PM EST us Modesto Galeana MD POINT OF CARE TEST ENTER/EDIT OR DERABLES Final Result Performing Organization Address [facility] Co de Phone Number [facility] [address] [place] [phone] * POCT Rapid Covid-19 BinaxNOW (11/16/2024 4:29 PM EST) [facility] Rapid COVID Ag Negative QC Media Lot # [id number] Lot# Expiration Date ,026 Swab 11/16/2024 4:29 PM EST us Modesto Galeana MD POINT OF CARE TEST ENTER/EDIT OR DERABLES Final Result * BI Mammogram Screening Tomosynthesis Bilateral (11/15/2024 2:02 PM EST) Anatomical Region Laterality Modality Breast Bilateral Mammography 11/15/2024 2:02 PM EST Narrative 11/21/2024 5:37 PM EST ? [facility] [place] ? [address] ?[place] [address] ? Mammography Report ? Signed ? Patient: Simmons,Norma ?MR#: [id number] ?? 823 ? : 1960 ?Acct:[id number] ? Age/Sex: 64 / F ?ADM Date: 11/15/24 ? Loc: HO.MAMMO ? Attending Dr: Kristan Mancilla HAND MICA PLATE LAYER ? Ordering Physician: Kristan Mancilla HAND MICA PLATE LAYER ?Results: 1Nega ?? tive ? Date of Service: 11/15/24 ?Follow Up: 1 Year From Orig ?? inal Mammogram ? Procedure(s): MM tomosynthesis screening BI ?? Accession Number(s): [id number] ? cc: Kristan Mancilla HAND MICA PLATE LAYER ? EXAMINATION: ?? MM SCREENING DIGITAL BREAST TOMOSYNTHESIS, BILATERAL ? CLINICAL INFORMATION: ? Screening. Asymptomatic. ? COMPARISON: ?? Mammography: Comparison is made with available priors ? TECHNIQUE: ?? Digital breast mammography with tomosynthesis is performed in both the ?? craniocaudal and mediolateral oblique views along with computer-aided ?? detection (CAD). ? FINDINGS: ?? There are scattered areas of fibroglandular density (ACR BI-RADS breast ?? composition Category b). ? There are no significant masses, abnormal calcifications, or other ?? abnormalities. ? MM/MM tomosynthesis screening BI ?? IMPRESSION: ?? No mammographic evidence of malignancy. ? ASSESSMENT: ? BI-RADS BI-RADS 1 - Negative ? RECOMMENDATION: ?? Routine annual mammography screening. ? 1 year F/U ? This examination should not preclude the clinical evaluation of a ?? suspicious palpable abnormality. ? This patient's information was entered into a reminder system with a ?? target due date for their next mammogram. ? Electronically signed by: ??Maria Elena Crawley DO ??11/21/2024 05:34 PM EST ?? RP ? Dictated By: ?Maria Elena Crawley DO ? Signed By: ?<Electronically signed by Maria Elena Crawley, DO in OV> ? 11/21/24 1734 ? DD/ 1402 ? TD/TT: 11/15/24 1426 ? Strategic Analyst: ? Procedure Note Saul, Image - 11/21/2024 [facility] [address] [place] [place], [place] [address] Mammography Report Signed Patient: Wilfredo Simmons#: [id number] 823 : 1960Acct:[id number] Age/Sex: 64 / FADM Date: 11/15/24 Loc: VETOO Attending Dr: Kristan Mancilla HAND MICA PLATE LAYER Ordering Physician: Kristan Mancilla FNPResults: 1Nega tive Date of Service: 11/15/24Follow Up: 1 Year From Orig inal Mammogram Procedure(s): MM tomosynthesis screening BI Accession Number(s): [id number] cc: Kristan Mancilla HAND MICA PLATE LAYER EXAMINATION: MM SCREENING DIGITAL BREAST TOMOSYNTHESIS, BILATERAL CLINICAL INFORMATION: Screening. Asymptomatic. COMPARISON: Mammography: Comparison is made with available priors TECHNIQUE: Digital breast mammography with tomosynthesis is performed in both the craniocaudal and mediolateral oblique views along with computer-aided detection (CAD). FINDINGS: There are scattered areas of fibroglandular density (ACR BI-RADS breast composition Category b). There are no significant masses, abnormal calcifications, or other abnormalities. MM/MM tomosynthesis screening BI IMPRESSION: No mammographic evidence of malignancy. ASSESSMENT: BI-RADS BI-RADS 1 - Negative RECOMMENDATION: Routine annual mammography screening. 1 year F/U This examination should not preclude the clinical evaluation of a suspicious palpable abnormality. This patient's information was entered into a reminder system with a target due date for their next mammogram. Electronically signed by: Maria Elena Crawley DO 11/21/2024 05:34 PM EST RP Dictated By: Maria Elena Crawley DO Signed By: <Electronically signed by Maria Elena Crawley DO in OV> 11/21/24 1734 DD/ 1402 TD/TT: 11/15/24 1426 Strategic Analyst: [facility] HAND MICA PLATE LAYER IMG BI PROCEDURES Final Resul t * (ABNORMAL) Lipid Panel, Standard (12/15/2023 11:45 AM EST) Triglycerides 96 <150 mg/dL [facility] Comment:Desirable Triglyceri de: less than 150 mg/dLBorderline High Triglyceride 150-199 mg/dLHigh Triglyceride: 200-499 mg/dLVery High Triglyceride: greater than or equal to 5OO mg/dL Cholesterol 206(H) <200 mg/dL [facility] Comment:Desirable Cholestero l: less than 200 mg/dLBorderline High Cholesterol: 200-239 mg/dLHigh Cholesterol: greater than 239 mg/dL LDL Cholesterol Calculated 135(H) <100 mg/dL [facility] Comment:Desirable LDL: less than 100 mg/dLNear Optimal/Above Optimal LDL: 110- 129 mg/dLBorderline High LDL: 130-159 mg/dLHigh LDL: 160-189 mg/dLVery High LDL: greater than or equal to 190 mg/dL HDL Cholesterol 52 >40 mg/dL [facility] Comment:Desirable HDL: great er than 40 mg/dL Note: This HDL assay may give artificially low results in patients with liver disease. Blood Venous blood specimen / Unknown 12/15/2023 11:45 AM EST 12/15/2023 11:45 AM EST [facility] LAB BLOOD ORDERABLES Final Re sult [facility] [address] [place] [phone] * (ABNORMAL) HPV mRNA E6/E7 (05/10/2019 10:54 AM EDT) HPV mRNA E6/E7 DETECTED (AA) NOT DETECTED [facility] Comment: This test was performed using the APTIMA(R) HPV Assay ([employer] This assay detects E6/E7 viral messenger RNA (mRNA) from 14 high-risk HPV types (16,18,31,33,35,39,45,51, 52,56,58,59,66,68). For additional information please refer to: http://education.Gigmax/faq/MIJ603i1 (This link is being provided for informational/ educational purposes only.) The analytical performance characteristics of this assay have been determined by [employer] [place], [place]. The modifications have not been cleared or approved by the FDA. This assay has been validated pursuant to the CLIA regulations and is used for clinical purposes. Test Performed by [facility], [facility], [address] [place] [address] Segundo Blanchard M.D., Ph.D., Director of Laboratories , CLIA [id number] Please note: ??Effective 06/23/2016, HPV testing will be performed using [employer] APTIMA test which targets mRNA. Detecting mRNA instead of DNA, as in older methods, offers significant improvements in specificity. 05/10/2019 10:5 4 AM EDT Kisha Jules NP HISTORICAL/NON ORDERABLE LABS Fi nal Result [facility] [address] from Last 3 Months or Most Recently Relevant to Health Maintenance Insurance [facility] C3 HSN PARTIAL Care Teams Intravenous Therapy Nurse Relationship Specialty Start Date End Date Kristan Mancilla FNP [address] [place] [phone] PCP - General Family Medicine 04/15/22
--- OUTSIDE RECORDS SUMMARY | 2024-11-29 16:17 | XMS_ITS | Encounter Summary ---
Author Organization [employer] Address [address] [facility] 7t [place] [address] Care Team Providers Care Mix Mill Tender Name Role Phone [place], [facility] Primary Care Provider [phone] Encounter Details Date Type Department Care Team (Late st Contact Info) Description 11/15/2024 Orders Only [facility] MED[facility] [address] [place], [place] [phone] [place], [facility] [address] [place] [address] Social History Tobacco Use Types Packs/Day Years Used Date Smoking Tobacco: Never Smokeless Tobacco: Never Depression Answer Date Recorded [...] Description 12/30/2024 11:15 AM EDT Office Visit [facility] [address] [facility] [place] [address] [place], [place], [facility] [address] [facility] [place] [address] documented as of this encounter Procedures Procedure Name Priority Date/Time Associated Diagnosis Comments BI MAMMOGRAM SCREENING TOMOSYNTHESIS BILATERAL Routine 11/15/2024 2:02 PM EST documented in this encounter Results * BI Mammogram Screening Tomosynthesis Bilateral (11/15/2024 2:02 PM EST) Anatomical Region Laterality Modality Breast Bilateral Mammography 11/15/2024 2:02 PM EST Narrative 11/21/2024 5:37 PM EST ? [facility] [place] ? [address] ?[place] [address] ? Mammography Report ? Signed ? Patient: Simmons,Norma ?MR#: [id number] ?? 823 ? : 1960 ?Acct:[id number] ? Age/Sex: 64 / F ?ADM Date: 02/04/25 ? Loc: HO.MAMMO ? Attending Dr: Kristan Laurent CONTACT LENS FITTER ? Ordering Physician: Laurent,Kristan CONTACT LENS FITTER ?Results: 1Nega ?? tive ? Date of Service: 11/15/24 ?Follow Up: 1 Year From Orig ?? inal Mammogram ? Procedure(s): MM tomosynthesis screening BI ?? Accession Number(s): [id number] ? cc: Laurent,Kristan CONTACT LENS FITTER ? EXAMINATION: ?? MM SCREENING DIGITAL BREAST [...] in OV> ? 11/21/24 1734 ? DD/ ? TD/TT: 11/15/246 ? Wind Turbine Installer: ? Procedure Note Donotuseinterpreter, Image - 11/21/2024 [facility] [address] [place] [address] Mammography Report Signed Patient: Wilfredo Simmons#: [id number] 823 : 1960Acct:[id number] Age/Sex: 64 / FADM Date: 11/15/24 Loc: HO.MAMMO Attending Dr: Kristan Mancilla CONTACT LENS FITTER Ordering Physician: Kristan Mancilla FNPResults: 1Nega tive Date of Service: 11/15/24Follow Up: 1 Year From Orig inal Mammogram Procedure(s): MM tomosynthesis screening BI Accession Number(s): [id number] cc: Kristan Mancilla CONTACT LENS FITTER EXAMINATION: MM SCREENING DIGITAL BREAST TOMOSYNTHESIS, BILATERAL [...] Elena Crawley DO 11/21/2024 05:34 PM EST Dictated By: Maria Elena Crawley DO Signed By: <Electronically signed by Maria Elena Crawley DO in OV> 11/21/24 1734 DD/ 1402 TD/TT: 11/15/24 1426 Wind Turbine Installer: Kristan Mancilla CONTACT LENS FITTER IMG BI PROCEDURES Final Resul t documented in this encounter Visit Diagnoses Not on filedocumented in this encounter Additional Health Concerns Assessment Noted Time PHQ-9 Depression Total Score: 12 024 3:40 PM EST documented as of this encounter Care Teams Mix Mill Tender Relationship Specialty Start Date End Date Kristan Mancilla FNP [address] [place] [phone] PCP - General Family Medicine 04/15/22 documented as of this encounter
--- OUTSIDE RECORDS SUMMARY | 2024-11-29 16:17 | XMS_ITS | Encounter Summary ---
Author Organization [employer] Address 75 [facility] 7t [place] [address] Care Team Providers Care Mechanics Supervisor Name Role Phone Meherrin [facility] Primary Care Provider [phone] Reason for Visit * Reason Onset Date Comments telephone call 11/29/2024 Encounter Details Date Type Department Care Team (Late st Contact Info) Description 11/29/2024 Telephone [facility] MEDICINE [address] [place] [address] Meherrin [facility] [address] [place] [address] telephone call Social History Tobacco Use Types Packs/Day Years [...] encounter Miscellaneous Notes * Telephone Encounter - Zee Thacker - 11/29/2024 4:13 PM EST Pt walked in requesting size small in pads , and wipes as well. documented in this encounter Plan of Treatment Upcoming Encounters Date Type Department Care Team (Late st Contact Info) Description 12/30/2024 11:15 AM EDT Office Visit [facility] MEDICINE [address] [place] [address] Kristan Mancilla FNP [address] [place] [address] documented as of this encounter Visit Diagnoses Not on filedocumented in this encounter Additional Health Concerns Assessment Noted Time PHQ-9 Depression Total Score: 12 024 3:40 PM EST documented as of this encounter Care Teams Mechanics Supervisor Relationship Specialty Start Date End Date Kristan Mancilla FNP [address] [place] [address] PCP - General Family Medicine 04/15/22 documented as of this encounter
[2024-11-29 16:19] LABS: Basophils Percent Auto 0.4 % (0-2); Eosinophils Absolute Auto 0.1 X10*3/uL (0.0-0.4); Eosinophils Percent Auto 0.7 % (0-4); Hematocrit 40.7 % (37.0-47.0); Hemoglobin 13.4 g/dl (12.0-16.0); Imm Gran Abs Auto 0.01 X10*3/uL (0.00-0.03); Imm Gran Pct Auto 0.1 % (0.0-0.4); Lymphocytes Percent Auto 42.7 % (20-40); Mean Corpuscular HGB Conc 32.9 g/dl (31.0-35.0); Mean Corpuscular Hemoglobin 30.9 pg (27.0-33.0); Mean Platelet Volume 8.9 fL (9.4-12.3); Monocytes Absolute Auto 0.6 X10*3/uL (0.1-1.2); Monocytes Percent Auto 8.1 % (2-11); Neutrophils Absolute Auto 3.4 x10*3/uL (2.0-8.3); Platelet Count 349 X10*3/uL (160-400); Red Blood Count 4.33 X10*6/uL (4.20-5.50); Red Cell Distribution Width 12.9 % (11.0-16.0)
[2024-11-29 16:23] LABS: Estimated Average Glucose 111 mg/dL; Hemoglobin A1C 129.2266 umol/L; Hemoglobin A1c % 5.5 % (<6.0); Total Hemoglobin (HGBA1C) 3497.7143 umol/L
[2024-11-29 16:40] LABS: Alanine Aminotransferase 41 U/L (0-31); Albumin Level 4.2 g/dL (3.5-5.0); Alkaline Phosphatase 75 U/L (39-117); Anion Gap 10 (12-20); Aspartate Amino Transferase 36 U/L (5-31); Bilirubin Total 0.3 mg/dL (0.0-1.0); Blood Urea Nitrogen 14 mg/dL (9-16); Calcium 9.6 mg/dL (8.4-10.2); Carbon Dioxide 28 mmol/L (22-29); Chloride 107 mmol/L (96-108); Cholesterol 234 mg/dL (<200); Estimated Glomerular Filt Rate > 60; Glucose Random 77 mg/dL (60-115); HDL Cholesterol 68 mg/dL (>40); LDL Cholesterol Calculated 143 mg/dL (<100); Potassium 4.3 mmol/L (3.3-5.1); Sodium 141 mmol/L (135-145); Total Protein 7.8 g/dL (6.5-8.0); Triglycerides 117 mg/dL (<150)
[2024-11-29 16:58] LABS: TSH reflex Free T4 4.71 uIU/mL (0.32-4.0); Vitamin D 25-OH Total 18.1 ng/mL (>30)
[2024-11-30 08:26] LABS: HIV AB/AG Nonreactive (Nonreactive); HIV Num 1 0.67 S/CO (0.00-0.99); ~HepC Num1 0.08 S/CO (0.00-0.79); ~Hepatitis C Antibody Nonreactive (Nonreactive)
== END 2024-11-29 15:25 | disposition home or self-care (01) ==
LOC: HO.HHCL 15:24
PROVIDERS: Visit Provider Internal Medicine
DX: E03.9 Hypothyroidism, unspecified (principal); R53.83 Other fatigue
CPT/HCPCS: 36415; 80053; 80061; 82306; 83036; 84439; 84443; 85025; 86803; 87389